=== PATIENT | male | born 1990 | race Two or more races ===

== ENCOUNTER 2024-09-21 19:34 | Emergency (ER) | payer MEDICAID, OTHER ==
[~2024-09-21] VITALS: Ht 175.3 cm; Wt 96.2 kg
--- NOTE | 2024-09-21 20:35 | ED.PDOC ---
Musculoskeletal HPI Comments Jaleel Chamberlain HPI: Poor Historian. 33 y.o male presents to the ED for a chief complaint of left ankle pain s/p twisting his ankle while playing basketball today around 1600. Patient is able to bear limited weight on left foot and is ambulating with crutches. Patient denies any falls or head trauma. No other complaints. Initial Vital Signs: Temp : 97.9 F BP: 113/68 HR:91 RR:14 SpO2: 96 % RA Past Medical History: Denies Past Surgical History: Denies Allergies: NKDA REVIEW OF SYSTEMS: CONSTITUTIONAL: Denies acute: fever, diaphoresis, chills, generalized weakness. HEAD: Denies acute: headache, photophobia Eyes: Denies acute: Double vision, vision loss, eye pain, eye discharge. EARS: Denies acute: tinnitus, hearing loss, ear discharge, ear pain, THROAT: Denies acute: sore throat, swelling, difficulty swallowing , pain with swallowing, change in voice. NECK: Denies acute: neck pain, neck swelling, stiff neck. HEART: Denies acute : chest pain, palpitations, LUNGS: Denies acute: SOB, wheezing, cough, hemoptysis ABDOMEN: Denies acute: abdominal pain, Nausea, Vomiting, diarrhea, melena , hematemesis, hematochezia SKIN: Denies acute: rash, redness, lesions, itchiness. EXTREMITIES: Denies acute: calf pain, numbness, tingling, weakness, Denies acute: Low back pain. Neuro: Denies acute: focal neurological deficit, motor or sensory focal neurological deficit, tremors, seizure like activity, confusion, dizziness, change in mental status, loss of bowel or bladder function, cauda equina like symptoms. : Denies acute: dysuria, hematuria, flank pain, increase in urinary frequency. PSYCH: Denies acute: hallucination, suicidal ideation, homicidal ideation. PHYSICAL EXAM: General: no acute distress, awake and alert. Head: normocephalic, atraumatic. Neck: supple, trachea is midline, no swelling. Throat: Normal phonation. Eyes:, no erythema, no purulent discharge, no proptosis, no icterus. Heart: regular rate, regular rhythm, no significant murmur appreciated. Lungs: no apparent respiratory distress, Able to speak in full sentences. No wheezing, no rhonchi, no crackles. No stridors Clear to auscultation bilaterally. Abdomen: non tender to palpation, non distended, soft, no guarding, no rebound, + bowel sounds. Neuro: Awake, Alert, oriented to name, self, situation, follows commands GCS=15. Speech is normal. Skin: no petechia, no purpura, no cyanosis, non-pale, not jaundice. Lower extremities: --no - Pitting edema no calf TTP. Evaluation the left ankle with the patient's area of complaint is. Noted lateral malleoli swelling and tenderness to palpation. Decreased range of motion secondary to pain. Pedal pulses palpable. Patient is neurovascularly intact in the affected extremity. Patient arrived to the ED with crutches. Makes eye contact. moves all four extremities. Face: no apparent facial droop. Ambulating in the ED independently. Pedal pulses are palpable. ED COURSE: Chief Complaint: Lower Extremity Time Seen by MD: 20:22 Reviewed Notes: Allergies Allergies: Coded Allergies: NO KNOWN ALLERGIES (Unverified , 09/21/24) Information Source: Patient Mode of Arrival: Ambulatory Past Medical History PAST MEDICAL HISTORY: Denies Surgical History: Denies all surgeries Family History Family History: Reviewed,noncontributory to illness, No family hx of Cancer, No family hx of DM, No family hx of Heart francoise, No family hx of HTN, No family hx ofKidney francoise, No family hx of Liver francoise, No family hx of Lung francoise, No family hx of Stroke Social History Smoker: Non-Smoker Alcohol: Denies ETOH Use Drugs: Denies Drug Use Lives In: Home Was a procedure done? Was a procedure done?: No Differential Diagnosis EXT Differential Diagnosis: Deep Vein Thrombosis, Compartment Syndrome, Fracture, Sprain, Dislocation, Contusion, Strain, Septic, Neurovascular injury X-Ray, Labs, Meds, VS Vital Signs Date Time Temp Pulse Resp B/P (MAP) Pulse Ox O2 Delivery O2 Flow Rate FiO2 09/21/24 20:00 97.9 91 14 113/68 (23) 96 [facility] [address] [facility] [address] Ph: [phone] DIAGNOSTIC IMAGING Diagnostic Imaging Report : [id number] Signed PATIENT: TIMOTHY CHAMBERLAIN ACCT: [id number] UNIT: [id number] : 1990 LOC: ER ROOM / BED: / AGE / SEX: 33 / M ADM STATUS: REG ER SERVICE 23 ORDERING PHYSICIAN: SILVIA MULLINS DO PROCEDURE(s): LANKL - L ANKLE 3 VIEW REASON: injury/pain swelling ORDER NUMBER(s): [id number], ACCESSION NUMBER(s): [id number] CLINICAL INDICATION: injury/pain swelling TECHNIQUE: 3 radiographic views of the left ankle were obtained. Comparison: None FINDINGS/IMPRESSION: There is no evidence of acute fracture or dislocation. The visualized joint space is well maintained. Soft tissue swelling over the lateral malleolus. The alignment is anatomical. There is no radiopaque foreign body. ATED BY: MARIBEL POTTS Jr., DO DICTATED DATE/TIME: 09/21/242055 SIGNED BY: MARIBEL POTTS Jr., SIGNED DATE/TIME: 09/21/242055 CC: Time of 1ST Reevaluation: 20:31 Reevaluation 1ST: Unchanged Patient Education/Counseling: Diagnosis, Treatment Family Education/Counseling: No Family Present Comments Patient presented with the above HPI.---ankle pain/injury---workup was initiated. patient was found with the above mentioned diagnosis. the following medications were ordered: please refer to order lists of meds and tests obtained by myself Dr. Mullins. Patient ED course and VS have been stabilized. Patient has been reassessed in the ED and remained in a stable condition. Pertinent incidental findings were discussed with the patient and/or family. Patient/family voices understanding and is agreeable with plan. Patient has been observed in the ED adequate length of time to insure improvement/stability. Escalation of care considered: Consideration of escalation to observation or admission Patient was DISCHARGED home in a stable condition. All the reports of any imaging studies that were ordered by myself were reviewed by myself. Departure 1 Departure Time of Disposition: 21:05 Impression: Primary Impression: Left ankle sprain Disposition: 01 HOME / SELF CARE / HOMELESS Condition: Stable Additional Instructions: Additional discharge instructions: You MUST follow-up with your primary care/family doctor in 1 to 2 days. If you are unable to see your primary care/family doctor, please return to our emergency room for re-assessment and re-evaluation in 1 to 2 days. Return to the emergency room here in our facility or to the nearest ER [facility] if your symptoms change or worsen. CONSULTATIONS: you MUST Follow-up for consultation as soon as possible with: orthopedic surgery in 1-2 days. Please call for appointment. You MUST call the consultants office yourself to make an appointment. You may need to arrange that through your insurance and/or your primary/family doctor. If you are unable to see the design center consultant in 1 to 2 days, you must return to our emergency room (or any other ER of your choice) for re-assessment and re- evaluation. Adequate fluid hydration. Ice, leg elevation, nonweightbearing for the next two weeks. Continue wearing the brace/Sidney wrap. Use [id number] Tylenol ibuprofen with food for pain control. Below is a copy of your radiological report for follow up: [place] [address] Ph: [phone] DIAGNOSTIC IMAGING Diagnostic Imaging Report : [id number] Signed PATIENT: TIMOTHY CHAMBERLAIN ACCT: [id number] UNIT: [id number] : 1990 LOC: ER ROOM / BED: / AGE / SEX: 33 / M ADM STATUS: REG ER SERVICE 23 ORDERING PHYSICIAN: SILVIA MULLINS DO PROCEDURE(s): LANKL - L ANKLE 3 VIEW REASON: injury/pain swelling ORDER NUMBER(s): [id number], ACCESSION NUMBER(s): [id number] CLINICAL INDICATION: injury/pain swelling TECHNIQUE: 3 radiographic views of the left ankle were obtained. Comparison: None FINDINGS/IMPRESSION: There is no evidence of acute fracture or dislocation. The visualized joint space is well maintained. Soft tissue swelling over the lateral malleolus. The alignment is anatomical. There is no radiopaque foreign body. ATED BY: MARIBEL POTTS Jr. DO DICTATED DATE/TIME: 09/21/242055 SIGNED BY: MARIBEL POTTS Jr., DO SIGNED DATE/TIME: 09/21/242055 CC: Discharged With: Self Critical Care Note Critical Care Time?: No I personally scribed for SILVIA MULLINS DO ([email or web address]) on 09/21/24 at 20:35. Electronically submitted by Priscilla Meng ([facility]). I personally scribed for SILVIA MULLINS DO ([email or web address]) on 09/21/24 at 21:04. Electronically submitted by Priscilla Meng ([facility]). SILVIA MULLINS DO Sep 21, 2024 20:35
--- NOTE | 2024-09-21 20:59 | DVH ---
CLINICAL INDICATION: injury/pain swelling TECHNIQUE: 3 radiographic views of the left ankle were obtained. Comparison: None FINDINGS/IMPRESSION: There is no evidence of acute fracture or dislocation. The visualized joint space is well maintained. Soft tissue swelling over the lateral malleolus. The alignment is anatomical. There is no radiopaque foreign body.
[2024-09-21 21:36] VITALS: BP 127/88; PULSE 86; RESP 18; TEMP 97.8; O2SAT 98
[2024-09-21] MEDS: HYDROcodone-ACET 5/325MG TAB PO ONE (21:37)
== END 2024-09-21 21:45 | disposition home or self-care (01) ==
LOC: ER 19:34
DX: S93.402A Sprain of unspecified ligament of left ankle, initial encounter (principal); X50.1XXA Overexertion from prolonged static or awkward postures, initial encounter; Y93.67 Activity, basketball; Y92.89 Other specified places as the place of occurrence of the external cause; Y99.8 Other external cause status; Z88.8 Allergy status to other drugs, medicaments and biological substances
CPT/HCPCS: 73610